=== PATIENT | male | born 1955 | race Caucasian/White ===

== ENCOUNTER 2018-12-04 06:04 | Day surgery (SDC) | payer BC ==
[2018-12-03 11:02] VITALS: BMI 28.2
[2018-12-04] MEDS ORDERED: PROPOFOL 20 ML ONE ×2 (07:22→07:32)
[2018-12-04] MEDS ORDERED: MIDAZOLAM HCL 2 MG/2 ML SINGLE DOSE VIAL ONE ×2 (07:22→07:48)
[2018-12-04] MEDS ORDERED: SUCCINYLCHOLINE CHLORIDE 200 MG/10 ML VIAL ONE (07:23)
[2018-12-04] MEDS ORDERED: DEXAMETHASONE SOD PHOSPHATE 4 MG/1 ML VIAL ONE (07:31)
[2018-12-04] MEDS ORDERED: LIDOCAINE HCL 1%, 10 MG/ML (20ML VIAL) ONE (07:32)
[2018-12-04] MEDS ORDERED: BUPIVACAINE HCL/PF 0.5% (5MG/ML) 10 ML VIAL ONE ×2 (07:32→10:22)
[2018-12-04] MEDS ORDERED: BENZOIN TINCTURE SWABSTICK TP ONE (07:32)
[2018-12-04] MEDS ORDERED: ceFAZolin SODIUM 1 GM VIAL ONE (07:57)
[2018-12-04] MEDS ORDERED: ceFAZolin SODIUM 1 GM VIAL IVPB ONE (07:58)
[2018-12-04] MEDS ORDERED: LIDOCAINE HCL 1%, 10 MG/ML (20ML VIAL) PNB ONE (08:18)
[2018-12-04] MEDS ORDERED: BACITRACIN 50,000 UNITS VIAL TP ONE (08:38)
[2018-12-04] MEDS ORDERED: ONDANSETRON 4 MG/2 ML VIAL IVPUSH PRN (09:51)
[2018-12-04] MEDS ORDERED: oxyCODONE HCL 5 MG TABLET PO PRN (09:51)
[2018-12-04] MEDS ORDERED: LACTATED RINGERS SOLUTION 1,000 ML IV SCH (10:00)
[2018-12-04] MEDS ORDERED: BACITRACIN 15 GM TUBE TOPICAL OINTMENT ONE (10:13)
[2018-12-04] MEDS ORDERED: BACITRACIN 15 GM TUBE TOPICAL OINTMENT TP ONE (10:17)
[2018-12-04] MEDS ORDERED: DEXAMETHASONE SOD PHOSPHATE 4 MG/1 ML VIAL NR ONE (10:25)
[2018-12-04] MEDS ORDERED: BUPIVACAINE HCL/PF (5 MG/ML) 30 ML VIAL IJ ONE (10:25)
[2018-12-04 13:05] VITALS: TEMP 97.7
[2018-12-04 15:05] VITALS: BP 114/63; PULSE 72
--- NOTE | 2018-12-08 15:54 | PATH ---
Surgical Pathology Report Patient Name: SHANE MCKEON [facility]. Rec. #: [id number] /Age/Gender: 1955 (Age: 63) / M Account: [id number] Location: [facility] Taken: 12/04/2018 Received: 12/04/2018 Reported: 12/08/2018 Physicians: Arsalan Michel DPM Specimen(s) Received BONE AND SKIN FROM RIGHT FOOT Clinical History Right foot hallux valgus, fifth toe hammertoe Final Diagnosis BONE AND SKIN, RIGHT FOOT, EXCISION: BONE WITH REACTIVE CHANGES, AND SKIN WITH HYPERKERATOSIS AND PARAKERATOSIS. Electronically Signed Rd Elliott M.D. Gross Description Received in formalin labeled "bone and skin right foot," is a 4.0 x 2.3 x 0.4 cm aggregate of abundant glover skin and bone fragments. Diagnostic Assistant sections are submitted in one cassette, following decalcification. /12/07/2018 saudi/12/07/2018
--- NOTE | 2019-01-29 07:08 | OP ---
DATE OF OPERATION: 12/04/2018 SURGEON: Arsalan Michel DPM, Industrial [employer] Technician: Brandon Stanley DPM, Osiris Knott DPM PREOPERATIVE DIAGNOSIS: Right hallux abductus interphalangeus, right foot, and 2nd digit hammertoe, right foot, 3rd, 4th, and 5th digit hammertoe, right foot. POSTOPERATIVE DIAGNOSIS: Right hallux abductus interphalangeus, right foot, and 2nd digit hammertoe, right foot, 3rd, 4th, and 5th digit hammertoe, right foot. PROCEDURES: 1. Sánchez osteotomy with staple and K-wire fixation for arthrodesis of the hallux osteotomy, right foot. 2. Second toe arthroplasty, right foot, corrected with arthrodesis with the use of [place] implant. 3. Third toe arthroplasty, right foot, corrected with arthrodesis with the use of Bayport implant. 4. Fourth toe arthroplasty, right foot, corrected with arthrodesis with the use of Bayport implant. 5. Fifth toe arthroplasty, right foot, corrected with arthrodesis with the use of Bayport implant. ANESTHESIA: General. HEMOSTASIS: Right ankle tourniquet at 250 mmHg. ESTIMATED BLOOD LOSS: 10 mL. DESCRIPTION OF PROCEDURE: The patient was brought to the operating room and placed on the operating table in the supine position. After adequate IV sedation and general anesthesia, a local infiltrative block was then administered utilizing a 1:1 mixture of 1% lidocaine plain and 0.5% Marcaine plain, a total of 30 mL injected throughout the surgical site, right foot. A well padded ankle tourniquette was applied. The right foot was then scrubbed, prepped, and draped in the usual aseptic fashion. Upon exsanguination of the right foot with an Esmarch bandage the pneumatic ankle tourniquet was then inflated to 250 mmHg. Surgery began in the following fashion: Attention was first directed to the dorsal aspect of the right hallux IPJ where a linear incision was made medial to the extensor hallucis longus tendon along the length of the proximal phalanx and approximately was 3 cm in length. The incision was then deepened through the subcutaneous tissue using sharp and blunt dissection. Care was taken to identify and retract all vital neural and vascular structures. All bleeders were then cauterized as necessary. Next, the periosteal and capsular structures were then carefully dissected free of its osseous attachments on the proximal phalanx and reflected medially and laterally exposing the length of the proximal phalanx to the operative site. Utilizing a sagittal saw, a [id number]-nywdymy wedge osteotomy was created in the metaphyseal region of the proximal phalanx. A wedge was lateral with the base medial. Upon the completion of the osteotomy, wedge-shaped portion of the bone was removed from the operative field and sent to Pathology, and the osteotomy was closed down medially and held in this corrected position. Next, utilizing a 10-mm [place]port screw, which was inserted on the dorsal medial and dorsal aspect of the osteotomy site with excellent compression, at this time, the lateral hinge noted to be open, a 2nd staple was inserted across the osteotomy site, 10-mm [place] staple was used. At this time, to reinforce the fixation, two 0.45-mm K-wires were used in a cross manner across the osteotomy site, and the edges were bent and safety cap was placed. At this time, the correction of the deformity was assessed and noted to be excellent. The surgical site was then irrigated with copious amount of normal saline with Bacitracin in it. The The periosteal and capsular structures were then reapproximated using 4-0 Vicryl sutures, and skin was closed using 5-0 Vicryl sutures. Next, attention was directed to the 2nd digit of the right foot, where 2 converging semielliptical incisions were made on the dorsal aspect of the PIPJ. The incision was then deepened through the subcutaneous tissue with care being taken to identify and retract all vital neural and vascular structures. All unavoidable vessels were ligated in the usual fashion. All other neurovascular structures were retracted out of the surgical site. At this time, a transverse tenotomy and capsulotomy was performed to the proximal interphalangeal joint of the 2nd digit of the right foot. The head of the proximal phalanx was then freed from its capsular and ligamentous attachments. The head was hypertrophied on its dorsal and lateral aspects. Utilizing a sagittal saw, the head of the proximal phalanx was resected and passed from the operative field. Attention was then noted to the 2nd digit, which the deformity appeared to be reduced fully. At this time using the paragon instrumentation both ends of the joint were prepared to receive the implant. Once prepared the implant was used which was inserted across the head of the proximal phalanx through the base of the middle phalanx, and the deformity was assessed and noted to be reduced fully. At this time, the wound was irrigated with copious amount of normal saline. The extensor tendon was then reapproximated using 3-0 Vicryl suture, and the skin was closed using 4-0 nylon suture in a simple suture fashion. Next, attention was brought to the 3rd and 4th and 5th toes. The same procedure as the 2nd digit was done. Including preparation and insertion of the implant. The extensor tendon of the 3rd, 4th, and 5th toes were sutured using 3-0 Vicryl suture, and the skin was closed using 4-0 nylon suture. At this time, postoperative injection was put in place around all surgical sites in a saravia block fashion. The incision sites were dressed with Steri-Strips, Betadine-soaked Adaptic, and covered with sterile compressive dressing such as 4x4 sterile gauze, Kerlix, and MARCIA bandage. The pneumatic ankle tourniquet was then deflated and prompt hyperemic response was noted to all digits of the right foot. A bivalved below knee cast was then placed on the patients right foot and leg. CR filling time was instantaneous. The patient tolerated the procedure and anesthesia well and was transferred to the post-anesthesia care unit with vital signs stable and vascular status intact to the right lower extremity. TOR Peters/[id number] MTDD
== END 2018-12-04 14:15 | disposition home or self-care (01) ==
LOC: JASU-SURG 06:04
PROVIDERS: ATTEND Podiatrist Foot Surgery
PROC: 0QSN04Z Reposition Right Metatarsal with Internal Fixation Device, Open Approach (ICD-10-PCS; 2018-12-04)
PROC: 0SRP0JZ Replacement of Right Toe Phalangeal Joint with Synthetic Substitute, Open Approach (ICD-10-PCS; principal; 2018-12-04 07:30)
DX: M20.5X1 Other deformities of toe(s) (acquired), right foot (principal); M20.41 Other hammer toe(s) (acquired), right foot
CPT/HCPCS: 73630-TC-RT-FY; 76000-TC-FY; 88304-TC; 88311-TC; 94760; 97116-GP